=== PATIENT | female | born 1995 | race Caucasian/White ===

== ENCOUNTER 2019-01-05 04:26 | Emergency (ER) | payer SELFPAY ==
[~2019-01-05] VITALS: Ht 160 cm; Wt 90.7 kg
[~2019-01-05 04:26] MED LIST: ALBUTEROL0.09 MG/A2 IH; AUGMENTIN 875 M1 TAB PO; BIRTH CONTROL1 EAC1 PO; CLARITIN10 MG PO; MOTRIN800 MG PO; TYLENOL W/CODEI1 TA2 PO; ZITHROMAX Z PA250 MG PO; ZYRTEC10 MG PO; Zofran4 MG PO
[2019-01-05] MEDS ORDERED: PROZAC20 MG PO (04:39)
[2019-01-05] MEDS ORDERED: CLINDAMYCIN150 MG PO (04:42)
[2019-01-05] MEDS ORDERED: Motrin,Rufen800 MG PO (04:42)
== END 2019-01-05 05:20 | disposition home or self-care (01) ==
LOC: ED 04:26
DX: K04.01 Reversible pulpitis (principal); K02.9 Dental caries, unspecified; Z79.899 Other long term (current) drug therapy

== ENCOUNTER 2019-10-09 13:37 | Emergency (ER) | payer OTHER ==
[~2019-10-09 13:37] MED LIST changes: +CLINDAMYCIN150 MG PO; +Motrin,Rufen800 MG PO; +PROZAC20 MG PO
[2019-10-09 13:38] VITALS: BP 110/70
[2019-10-09] MEDS ORDERED: ROBAXIN-750750 MG PO (14:33)
[2019-10-09] MEDS ORDERED: IBUPROFEN600 MG PO (14:33)
== END 2019-10-09 14:33 | disposition home or self-care (01) ==
LOC: ED 13:37
DX: S30.0XXA Contusion of lower back and pelvis, initial encounter (principal); J45.909 Unspecified asthma, uncomplicated; W10.8XXA Fall (on) (from) other stairs and steps, initial encounter; Y93.89 Activity, other specified; Y92.89 Other specified places as the place of occurrence of the external cause; Y99.8 Other external cause status

== ENCOUNTER 2021-03-15 12:36 | Emergency (ER) | payer OTHER ==
[~2021-03-15] VITALS: Ht 160 cm; Wt 99.8 kg
[~2021-03-15 12:36] MED LIST changes: +IBUPROFEN600 MG PO; +ROBAXIN-750750 MG PO
[2021-03-15 13:09] LABS: BASO # 0.1 10*3/uL (0.0-0.1); BASO % 0.8 % (0.0-1.0); EOS # 0.3 10*3/uL (0.0-0.4); EOS % 5.2 % (1.0-4.0); HEMATOCRIT 34.9 % (37.0-47.0); LYMPH # 1.7 10*3/uL (1.3-4.4); LYMPH % 27.6 % (27.0-41.0); MEAN CELL VOLUME 78.3 fl (81.0-99.0); MEAN CORPUSCULAR HGB 24.7 pg (27.0-31.0); MEAN CORPUSCULAR HGB CONC 31.5 g/dl (33.0-37.0); MEAN PLATELET VOLUME 9.5 fl (9.6-12.3); MONO # 0.6 10*3/uL (0.1-1.0); MONO % 9.2 % (3.0-9.0); NEUT # 3.5 10*3/uL (2.3-7.9); PLATELET COUNT AUTOMATED 270 10*3/uL (130-400); RED BLOOD COUNT 4.46 10*6/uL (4.10-5.10); RED CELL DISTRI WIDTH 13.7 % (0-14.5); WHITE BLOOD COUNT 6.2 10*3/uL (4.8-10.8)
[2021-03-15 13:20] LABS: ACT PARTIAL THROMBO TIME 26.4 SECONDS (20.0-32.1)
[2021-03-15 13:25] LABS: ALBUMIN 3.6 gm/dl (3.1-4.5); ALKALINE PHOSPHATASE 67 U/L (45-117); BUN 12 mg/dl (7-24); CHLORIDE 112 mmol/L (98-107); LIPASE 63 U/L (73-393); POTASSIUM 3.9 mmol/L (3.5-5.1); SGOT/AST 9 IU/L (3-35); SGPT/ALT 21 U/L (12-78); SODIUM 140 mmol/L (136-145); TOTAL PROTEIN 6.9 gm/dL (6.4-8.2)
[2021-03-15 13:27] LABS: BETA-HCG, QUANT < 1.0 mIU/mL (1-3); TROPONIN I < 0.015 ng/ml (<0.045)
[2021-03-15 16:26] VITALS: BP 102/68
== END 2021-03-15 17:48 | disposition home or self-care (01) ==
LOC: ED 12:36
PROVIDERS: Emergency Medicine
DX: R07.89 Other chest pain (principal); R11.0 Nausea; R42 Dizziness and giddiness; Z79.899 Other long term (current) drug therapy; Z98.890 Other specified postprocedural states; Z98.82 Breast implant status

== ENCOUNTER 2024-02-12 00:38 | Emergency (ER) | payer OTHER ==
[~2024-02-12] VITALS: Ht 157.4 cm; Wt 99.8 kg
[2024-02-12 00:46] VITALS: BP 119/77
[2024-02-12] MEDS ORDERED: PENICILLIN V POTASSIUM 500 MG TAB PO ONE (00:55)
[2024-02-12] MEDS ORDERED: Ondansetron Hydrochloride 4 MG TAB SL ONE (00:55)
[2024-02-12] MEDS ORDERED: Acetaminophen/Hydrocodone 5 MG/325 MG TABLET PO ONE (00:55)
[2024-02-12] MEDS ORDERED: PENICILLIN VK500 MG PO (00:58)
== END 2024-02-12 01:06 | disposition home or self-care (01) ==
LOC: ED 00:38
DX: K02.9 Dental caries, unspecified (principal); J45.909 Unspecified asthma, uncomplicated; Z98.890 Other specified postprocedural states

== ENCOUNTER 2024-02-26 19:45 | Emergency (ER) | payer OTHER ==
[~2024-02-26] VITALS: Ht 160 cm; Wt 104.3 kg
[~2024-02-26 19:45] MED LIST changes: +PENICILLIN VK500 MG PO
[2024-02-26 19:53] VITALS: BP 110/77
[2024-02-26] MEDS ORDERED: SODIUM CHLORIDE 0.9% 1,000 ML IV ONE (21:25)
[2024-02-26] MEDS ORDERED: Pantoprazole Sodium 40 MG VIAL IV ONE (21:25)
[2024-02-26] MEDS ORDERED: Ondansetron Hydrochloride 4 MG/2 ML VIAL IV ONE (21:25)
[2024-02-26 21:40] LABS: BASO % 0.3 % (0.0-1.0); EOS # 0.2 10*3/uL (0.0-0.4); EOS % 1.2 % (1.0-4.0); HEMATOCRIT 45.3 % (37.0-47.0); LYMPH % 23.2 % (27.0-41.0); MEAN CORPUSCULAR HGB 26.6 pg (27.0-31.0); MEAN CORPUSCULAR HGB CONC 31.3 g/dl (33.0-37.0); MEAN PLATELET VOLUME 9.1 fl (9.6-12.3); MONO # 0.8 10*3/uL (0.1-1.0); NEUT # 8.8 10*3/uL (2.3-7.9); PLATELET COUNT AUTOMATED 338 10*3/uL (130-400); RED BLOOD COUNT 5.33 10*6/uL (4.10-5.10); RED CELL DISTRI WIDTH 14.6 % (0-14.5); WHITE BLOOD COUNT 12.8 10*3/uL (4.8-10.8)
[2024-02-26 22:01] LABS: ALKALINE PHOSPHATASE 71 U/L (46-116); BUN 5 mg/dl (9-23); CHLORIDE 103 mmol/L (98-107); LIPASE 37 U/L (12-53); POTASSIUM 4.2 mmol/L (3.4-5.1); SGPT/ALT 11 U/L (5-49)
[2024-02-26] MEDS ORDERED: IOHEXOL 300 MG/ML 100 ML VIAL IV ONE (22:50)
[2024-02-26 23:22] LABS: BILIRUBIN Negative (Negative); BLOOD Negative (Negative); CLARITY Clear (Clear); COLOR Yellow (Yellow); GLUCOSE Negative (Negative); KETONE 1+ (Negative); LEUKO ESTERASE Trace (Negative); NITRITE Negative (Negative)
[2024-02-26 23:36] LABS: BACTERIA TRACE
[2024-02-27] MEDS ORDERED: Promethazine Hydrochloride 25 MG TAB PO ONE (00:40)
[2024-02-27] MEDS ORDERED: Ondansetron Hydrochloride 4 MG/2 ML VIAL IV ONE (00:45)
[2024-02-27] MEDS ORDERED: PROTONIX40 MG PO (01:15)
[2024-02-27] MEDS ORDERED: Acetaminophen/Hydrocodone 5 MG/325 MG TABLET PO ONE (01:15)
== END 2024-02-27 01:40 | disposition home or self-care (01) ==
LOC: ED 19:45
PROVIDERS: Emergency Medicine
DX: K29.70 Gastritis, unspecified, without bleeding (principal); R11.10 Vomiting, unspecified; Z79.899 Other long term (current) drug therapy; Z79.2 Long term (current) use of antibiotics; Z98.890 Other specified postprocedural states

== ENCOUNTER 2024-06-23 20:28 | Emergency (ER) | payer OTHER ==
[~2024-06-23] VITALS: Ht 157.4 cm; Wt 104.3 kg
[~2024-06-23 20:28] MED LIST changes: +PROTONIX40 MG PO
[2024-06-23] MEDS ORDERED: ACETAMINOPHEN 325 MG TAB PO ONE (21:05)
[2024-06-23] MEDS ORDERED: IBUPROFEN 400 MG TAB PO ONE (21:10)
[2024-06-23] MEDS ORDERED: AMOX-CLAV 875-1 EACH PO (22:09)
[2024-06-23] MEDS ORDERED: AVPAK AZITHROM250 M1 PO (22:09)
[2024-06-23] MEDS ORDERED: AZITHROMYCIN 250 MG TAB PO ONE (22:10)
[2024-06-23] MEDS ORDERED: Amoxicillin/Clavulanate Pota 875 MG TAB PO ONE (22:10)
[2024-06-23 22:26] VITALS: BP 112/58
== END 2024-06-23 22:14 | disposition home or self-care (01) ==
LOC: ED 20:28
DX: J18.9 Pneumonia, unspecified organism (principal); Z20.822 Contact with and (suspected) exposure to COVID-19; J45.909 Unspecified asthma, uncomplicated; Z98.890 Other specified postprocedural states

== ENCOUNTER 2024-11-15 15:35 | Emergency (ER) | payer OTHER ==
[~2024-11-15] VITALS: Ht 157.5 cm; Wt 104.3 kg
[~2024-11-15 15:35] MED LIST changes: +AMOX-CLAV 875-1 EACH PO; +AVPAK AZITHROM250 M1 PO
[2024-11-15 15:45] VITALS: BP 115/73
[2024-11-15] MEDS ORDERED: CITALOPRAM40 MG PO (15:49)
[2024-11-15] MEDS ORDERED: PREDNISONE20 M1 PO (16:46)
[2024-11-15] MEDS ORDERED: methylPREDNISolone sod succ 125 MG VIAL IM ONE (16:50)
== END 2024-11-15 17:02 | disposition home or self-care (01) ==
LOC: ED 15:35
DX: S86.911A Strain of unspecified muscle(s) and tendon(s) at lower leg level, right leg, initial encounter (principal); J45.909 Unspecified asthma, uncomplicated; Z98.890 Other specified postprocedural states; X50.0XXA Overexertion from strenuous movement or load, initial encounter; Y93.89 Activity, other specified; Y92.89 Other specified places as the place of occurrence of the external cause; Y99.0 Civilian activity done for income or pay

== ENCOUNTER → 2024-11-25 | Outpatient (CLI) | payer OTHER ==
[~2024-11-25] MED LIST changes: +CITALOPRAM40 MG PO; +PREDNISONE20 M1 PO
== END | disposition home or self-care (01) ==
LOC: MRI 12:40
PROVIDERS: ATTEND Orthopaedic Surgery
DX: S83.241A Other tear of medial meniscus, current injury, right knee, initial encounter (principal); X58.XXXA Exposure to other specified factors, initial encounter; Y93.89 Activity, other specified; Y92.89 Other specified places as the place of occurrence of the external cause; Y99.8 Other external cause status

== ENCOUNTER 2025-08-23 17:40 | Emergency (ER) | payer OTHER ==
[~2025-08-23] VITALS: Ht 157.4 cm; Wt 98.0 kg
[2025-08-23 17:58] VITALS: BP 106/75
[2025-08-23] MEDS ORDERED: Acetaminophen/Hydrocodone HP 10/325 PO ONE (18:05)
[2025-08-23] MEDS ORDERED: PREDNISONE50 MG PO (18:59)
[2025-08-23] MEDS ORDERED: METHOCARBAMOL500 M1 PO (18:59)
[2025-08-23] MEDS ORDERED: predniSONE 20 MG TAB PO ONE (19:00)
== END 2025-08-23 19:01 | disposition home or self-care (01) ==
LOC: ED 17:40
DX: S46.911A Strain of unspecified muscle, fascia and tendon at shoulder and upper arm level, right arm, initial encounter (principal); Z79.899 Other long term (current) drug therapy; Z98.890 Other specified postprocedural states; X50.0XXA Overexertion from strenuous movement or load, initial encounter; Y93.89 Activity, other specified; Y92.89 Other specified places as the place of occurrence of the external cause; Y99.8 Other external cause status